=== PATIENT | male | born 1945 | race Asian ===

== ENCOUNTER 2017-03-26 16:00 | Outpatient (CLI) | payer SELFPAY ==
[2017-03-26 19:14] LABS: BF CLARITY TURBID; CC,BF RBC 29555 /mm^3; LYMPHOCYTES %,BODY FLUID 8; NEUTROPHILS %, BF 92 %
[2017-03-26 19:16] LABS: BF COLOR YELLOW
== END 2017-03-26 23:59 | disposition home or self-care (01) ==
LOC: LAB.R 16:00
PROVIDERS: ATTEND Orthopaedic Surgery
DX: T84.59XD Infection and inflammatory reaction due to other internal joint prosthesis, subsequent encounter (principal)
CPT/HCPCS: 87070; 87205; 89051